=== PATIENT | female | born 1975 | race Caucasian/White ===

== ENCOUNTER → 2017-03-21 | Outpatient (CLI) | payer OTHER ==
[2005-06-22 11:27] VITALS: PULSE 81
[~2017-03-21] MED LIST: MOTRIN 600600 MG/TAB PO; PERCOCET 325 MG1 TA2 PO; PRENATAL1 TA1 PO
== END ==
LOC: SUN.DIA 08:45
DX: O24.419 Gestational diabetes mellitus in pregnancy, unspecified control (principal); Z3A.31 31 weeks gestation of pregnancy; Z71.3 Dietary counseling and surveillance
CPT/HCPCS: G0108

== ENCOUNTER 2019-03-26 05:11 | Inpatient (IN) | payer OTHER ==
[2019-03-26] VITALS (20 sets, daily range): BP systolic 95–157; BP diastolic 60–92; PULSE 62–92; TEMP 97.3–98.1
[~2019-03-26] VITALS: Ht 175.3 cm; Wt 97.3 kg
[~2019-03-26 05:11] MED LIST changes: +IBU800 M1 PO; +MOTRIN 800800 MG/TAB PO; +PRENATAL
--- NOTE | 2019-03-26 05:25 | NUR ---
Ambulatory to unit for scheduled repeat C/Section, accompanied by spouse. Oriented to room, plan of care. Pt reports "I've been [place] all night." SVE /-1. to for BP.
[2019-03-26 06:02] LABS: BASO # 0.1 (0.0-0.2); BASO % 0.6 % (0.0-2.0); EOS # 0.2 (0.0-0.7); EOS % 1.4 % (0-4.0); GRAN # 8.5 (1.4-6.5); GRAN % 76.1 % (42.2-75.2); HEMATOCRIT 38.2 % (37.0-47.0); HEMOGLOBIN 12.6 g/dl (12.5-16.0); LYMPH # 1.7 (1.2-3.4); LYMPH % 15.5 % (20.0-51.0); MEAN CELL VOLUME 86 fl (80.0-100.0); MEAN CORPUSCULAR HEMOGLOBIN 28 pg (27.0-31.0); MEAN CORPUSCULAR HGB CONC 33 g/dl (33.0-37.0); MEAN PLATELET VOLUME 10.1 fl (7.4-10.4); MONO # 0.7 (0.1-0.6); PLATELET COUNT 273 K/mm3 (130-400); RED BLOOD COUNT 4.44 M/mm3 (4.10-5.30); REDCELL DISTRIBUTION WIDTH-CV 13.6 % (11.5-14.5)
[2019-03-26] MEDS ORDERED: MICRONASE2.5 MG PO (06:21)
--- NOTE | 2019-03-26 06:38 | NUR ---
ASSESSMENT COMPLETED. PATIENT IS STILL HAVING CONTRACTIONS BUT STATES HAVE SHALA GOT ANY STRONGER. PATIENT DOES NOT WANT TO , READY FOR OR AT THIS TIME
[2019-03-26] MEDS ORDERED: MOTRIN 800800 MG/TAB PO (08:16)
[2019-03-26] MEDS ORDERED: PERCOCET 325 MG1 TA2 PO (08:16)
--- NOTE | 2019-03-26 09:38 | NUR ---
0925 FUNDUS CHECK NOTED WITH LARGE AMOUNT OF BLEEDING NOTED. PATIENT TURNED AND CLEANED UP AND PADS CHANGED. UTERUS BOGGY MASSAGED UNTIL FIRM LARGE AMOUNT OF CLOTS NOTED. DR LUNA CALLED AND UPDATED ORDERS GIVEN. 0935 METHERGINE GIVEN IN LEFT THIGH AND CYTOTEC 800 MG RECTALLY GIVEN AT THIS TIME PER DR LUNA ORDER. PITOCIN 30 MU IN 500 LR HUNG ALSO. 0937 FUNUDS CHESK WITH LARGE CLOT SIZE OF ORANGE WITH FREE FLOW. FUNDUS MASSAGED UNTIL FIRM.
--- NOTE | 2019-03-26 09:41 | NUR ---
0993 PAD WEIGHT [id number] PAD WEIGHT 72
--- NOTE | 2019-03-26 09:59 | NUR ---
1000 FUNDUS FIRM AND WALNUT SIZE CLOT NOTED. PAD WEIGHT 50
[2019-03-26 10:20] LABS: HEMOGLOBIN 10.6 g/dl (12.5-16.0)
--- NOTE | 2019-03-26 10:46 | NUR ---
1045 FUNUD FIRM WHEN CHECKED BUT 150 CLOTS NOTED WITH CHECK
--- NOTE | 2019-03-26 11:58 | NUR ---
1145 PATIENT CALLS OUT AND STATES THINKS SHE IS BLEEDING AGAIN. FUNDUS CHECK LARGE AMOUNT OF CLOTS AND FREE FLOW NOTED. FUNDUS MASSAGED UNTIL FIRM. DR LUNA CALLED AND UPDATED ORDERS GIVEN. 1150 FUNDUS FIRM AT THIS TIME. 500 LR WITH 30 PITOCIN IN GIVEN AND HEMABATE TO RIGHT THIGH. PAD WEIGHT [address] LUNA CALLED TO COME TO HOSPITAL FOR EVALUATION.
--- NOTE | 2019-03-26 12:50 | NUR ---
1230 DR LUNA AT BEDSIDE TO EVALUATE PATIENT. WALNUT SIZE CLOT NOTED WITH FUNDAL MASSAGE. SVE AND LARGE AMOUNT OF CLOTS EXPRESSED WITH EXAM. PAD WEIGHT 350
[2019-03-26 12:57] LABS: HEMATOCRIT 29.6 % (37.0-47.0)
--- NOTE | 2019-03-26 14:10 | NUR ---
1300 PATIENT SITS AT BEDSIDE NO DIZZINESS NOTED. STANDS AT BEDSIDE. PATIENT TOLERATES WELL. ASSISTED BACK TO BED PERICARE DONE AT THIS TIME. DENIES NEEDS
--- NOTE | 2019-03-26 14:15 | NUR ---
1415 FUNDUS FIRM WITH MINIMAL BLEEDING NOTED.
--- NOTE | 2019-03-26 16:10 | NUR ---
1610- Pt transfers into wheelchair independently. Taken to nursery by this RN to see . Pt denies dizziness or light headedness. MELISA San at bedside with and mom.
[2019-03-26 17:31] LABS: HEMATOCRIT 25.6 % (37.0-47.0); HEMOGLOBIN 8.7 g/dl (12.5-16.0)
[2019-03-27] VITALS (12 sets, daily range): BP systolic 104–121; BP diastolic 53–85; PULSE 69–93; TEMP 97.2–98.8
[2019-03-27 08:06] LABS: HEMATOCRIT 22.1 % (37.0-47.0); HEMOGLOBIN 7.3 g/dl (12.5-16.0)
[2019-03-27 17:44] LABS: HEMATOCRIT 25.5 % (37.0-47.0); HEMOGLOBIN 8.7 g/dl (12.5-16.0)
[2019-03-28 02:05] VITALS: BP 130/71; PULSE 72; TEMP 97.8
[2019-03-28 07:15] VITALS: BP 124/81; PULSE 95; TEMP 98.1
--- NOTE | 2019-03-28 11:40 | NUR ---
Congratulated the family on behalf of [facility].
== END 2019-03-28 12:30 | disposition home or self-care (01) | DRG 787 ==
LOC: OB 05:11 → LDR 09:44 → OB 03-28 12:30
PROVIDERS: ADMIT Obstetrics & Gynecology
PROC: 10D00Z1 Extraction of Products of Conception, Low, Open Approach (ICD-10-PCS; principal; 2019-03-26)
PROC: 30233N1 Transfusion of Nonautologous Red Blood Cells into Peripheral Vein, Percutaneous Approach (ICD-10-PCS; 2019-03-27)
DX: O34.211 Maternal care for low transverse scar from previous cesarean delivery (principal); O72.1 Other immediate postpartum hemorrhage; O13.4 Gestational [pregnancy-induced] hypertension without significant proteinuria, complicating childbirth; O24.425 Gestational diabetes mellitus in childbirth, controlled by oral hypoglycemic drugs; Z3A.38 38 weeks gestation of pregnancy; Z37.0 Single live birth; O90.81 Anemia of the puerperium; D64.9 Anemia, unspecified; O99.824 Streptococcus B carrier state complicating childbirth; Z28.21 Immunization not carried out because of patient refusal
CPT/HCPCS: J0690; J1885; J2175; J2210; J2370; J2405; J2590; J3010; J7050; J7120; P9016